=== PATIENT | male | born 1970 | race Caucasian/White ===

== ENCOUNTER 2016-10-10 11:05 | Inpatient (IN) ==
[2016-10-10] MEDS ORDERED: Ziprasidone injection 20 MG/ML VIAL IM ONE (11:18)
--- NOTE | 2016-10-10 11:19 | Emergency Department Note ---
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 Duration: constant Improves with: none Worsens with: none Context: other (Patient unable to give a history) Alleged intoxication: No Associated Psychiatric Symptoms: delusions Associated symptoms: Reports: denies other symptoms Traumatic symptoms: denies traumatic injury Treatments prior to arrival: senior care/police Self harm or harm to others: other (Patient denies any suicidal or homicidal ideation) - Related Data Home Medications Medication Instructions Recorded Confirmed No Known Home Drugs 10/10/16 10/10/16 Allergies Allergy/AdvReac Type Severity Reaction Status Date / Time No Known Allergies Allergy Verified 10/10/16 15:06 All systems ED: reviewed and negative except as stated. Constitutional: Denies: fever, chills Cardiovascular: Denies: chest pain Past Medical History - Past Medical History Source: patient, nursing notes reviewed Physical Exam - General Limitations: altered mental status (Patient appears to be in acute manic state) General appearance: alert - Head Head exam: atraumatic, normocephalic, normal inspection - Eye Eye exam: Present: normal appearance, PERRL, EOMI - Expanded Eye Exam Pupils: Left: reactive - ENT ENT exam: normal exam, normal oropharynx, mucous membranes moist - Expanded ENT Exam External ear exam: Present: normal external inspection Mouth exam: Present: normal external inspection Teeth exam: Present: normal inspection Throat exam: Present: normal inspection - Neck Neck exam: Present: normal inspection, full ROM, trachea midline - Chest Chest inspection: Present: normal inspection, symmetric chest wall rise - Respiratory Respiratory exam: Present: normal lung sounds bilaterally - Cardiovascular Cardiovascular exam: Present: regular rate, normal rhythm, normal heart sounds - Abdominal Exam Abdominal exam: Present: soft, Non-Tender. Absent: tenderness, distention, guarding, rebound, rigidity - Extremities Exam Extremities exam: Present: normal inspection, full ROM. Absent: tenderness, pedal edema - Expanded Upper Extremity Exam Shoulder exam: Present: normal inspection, full ROM Arm exam: Present: normal inspection, full ROM Elbow exam: Present: normal inspection, full ROM Forearm/Wrist exam: Present: normal inspection, full ROM Hand exam: Present: normal inspection, full ROM Vascular exam: Normal: capillary refill, radial pulse - Expanded Lower Extremity Exam Hip/Pelvis exam: Present: normal inspection, full ROM Upper leg exam: Present: normal inspection, full ROM Knee exam: Present: normal inspection, full ROM Lower leg exam: Present: normal inspection, full ROM Ankle exam: Present: normal inspection, full ROM Foot/toe exam: Present: normal inspection, full ROM Neurovascular/Tendon exam: Absent: motor deficit, sensory deficit, tendon deficit - Back Exam Back exam: Present: normal inspection, full ROM. Absent: tenderness - Neurological Exam Neurological exam: Present: alert - Expanded Neurological Exam Patient oriented to: Present: person Coma Scale Eye Opening: Spontaneous Coma Scale Motor Response: Obeys Commands Coma Scale Verbal Response: Oriented Coma Scale Total: 15 - Psychiatric Psychiatric exam: Present: manic - Skin Skin exam: Present: warm, dry, intact, normal color Course Vital Signs Temperature 99.0 F 10/10/16 11:08 Pulse Rate 121 10/10/16 11:08 Respiratory Rate 20 10/10/16 11:08 Blood Pressure 154/81 10/10/16 11:08 O2 Sat by Pulse Oximetry 97 10/10/16 11:08 Temperature 98.4 F 10/10/16 15:04 Pulse Rate 94 10/10/16 15:04 Respiratory Rate 16 10/10/16 15:04 Blood Pressure 126/83 10/10/16 15:04 O2 Sat by Pulse Oximetry 99 10/10/16 15:04 Oxygen Delivery Oxygen Delivery Room Air Psych - Lab Data Result diagrams: 10/10/16 11:34 10/10/16 11:34 Lab Results 10/10/16 10/10/16 10/10/16 Range/Units 11:31 11:31 11:34 WBC 8.7 (4.3-11.1) K/mcL RBC 5.17 (4.19-5.50) M/mcL Hgb 15.1 (12.9-16.9) g/dL Hct 44.9 (37.5-50.1) % MCV 86.8 (83.0-100.0) fL MCH 29.2 (28.0-33.3) pg MCHC 33.6 (31.6-35.5) g/dL RDW 13.9 (11.5-14.5) % Plt Count 272 (140-400) K/mcL MPV 9.5 (9.4-12.4) fL Immature Gran % 0.7 (0-4) % Seg Neutrophils % 70.4 % Lymphocytes % 19.1 % Monocytes % 9.0 % Eosinophils % 0.3 % Basophils % 0.5 % Neutrophils # 6.1 (1.6-8.9) K/mcL Lymphocytes # 1.7 (0.6-4.6) K/mcL Monocytes # 0.8 (0.0-1.3) K/mcL Eosinophils # 0.0 (0.0-0.6) K/mcL Basophils # 0.0 (0.0-0.2) K/mcL Sodium (136-145) mEq/L Potassium (3.5-4.5) mEq/L Chloride (98-109) mEq/L Carbon Dioxide (19-29) mEq/L BUN (8-26) mg/dL Creatinine (0.72-1.25) mg/dL Est GFR ( Amer) (> 60) Est GFR (Non-Af Amer) (> 60) BUN/Creatinine Ratio (6-26) Glucose (70-99) mg/dL Calculated Osmolality (280-300) Calcium (8.6-10.8) mg/dL Urine Color Dark Yellow (Yellow) Urine Clarity Clear (Clear) Urine pH 5.5 (5.0-8.0) pH Units Ur Specific [place] > 1.030 H (1.010-1.025) Urine Protein 30 H (Neg-Trace) mg/dL Urine Glucose (UA) Normal (Normal) mg/dL Urine Ketones Trace H (Negative) mg/dL Urine Blood Negative (Negative) Urine Nitrite Negative (Negative) Urine Bilirubin Small H (Negative) Urine Urobilinogen Normal (Normal) mg/dL Ur Leukocyte Esterase Negative (Negative) Urine Microscopic RBC 5-15 H (0-3) per hpf Urine Microscopic WBC 3-5 H (0-3) per hpf Ur Squamous Epith Cells Many H (None-Few) per lpf Urine Bacteria None Seen (None-Few) per hpf Hyaline Casts Few (None-Few) per lpf Salicylates (15-30) mg/dL Urine Opiates Screen Negative (Nulrce=207) ng/mL Acetaminophen (10-30) mcg/mL Ur Barbiturates Screen Negative (Zloumj=940) ng/mL Ur Phencyclidine Scrn Negative (Cutoff=25) ng/mL Ur Amphetamines Screen Negative (Vshzjb=1670) ng/mL U Benzodiazepines Scrn Negative (Nygpbf=714) ng/mL Urine Cocaine Screen Negative (Cutoff= 300) ng/mL U Marijuana (THC) Screen Positive H (Cutoff = 50) ng/mL Ethyl Alcohol (0-10) mg/dL 10/10/16 Range/Units 11:34 WBC (4.3-11.1) K/mcL RBC (4.19-5.50) M/mcL Hgb (12.9-16.9) g/dL Hct (37.5-50.1) % MCV (83.0-100.0) fL MCH (28.0-33.3) pg MCHC (31.6-35.5) g/dL RDW (11.5-14.5) % Plt Count (140-400) K/mcL MPV (9.4-12.4) fL Immature Gran % (0-4) % Seg Neutrophils % % Lymphocytes % % Monocytes % % Eosinophils % % Basophils % % Neutrophils # (1.6-8.9) K/mcL Lymphocytes # (0.6-4.6) K/mcL Monocytes # (0.0-1.3) K/mcL Eosinophils # (0.0-0.6) K/mcL Basophils # (0.0-0.2) K/mcL Sodium 140 (136-145) mEq/L Potassium 3.7 (3.5-4.5) mEq/L Chloride 103 (98-109) mEq/L Carbon Dioxide 23 (19-29) mEq/L BUN 13 (8-26) mg/dL Creatinine 0.99 (0.72-1.25) mg/dL Est GFR ( Amer) > 60 (> 60) Est GFR (Non-Af Amer) > 60 (> 60) BUN/Creatinine Ratio 13 (6-26) Glucose 110 H (70-99) mg/dL Calculated Osmolality 291 (280-300) Calcium 9.4 (8.6-10.8) mg/dL Urine Color (Yellow) Urine Clarity (Clear) Urine pH (5.0-8.0) pH Units Ur Specific [place] (1.010-1.025) Urine Protein (Neg-Trace) mg/dL Urine Glucose (UA) (Normal) mg/dL Urine Ketones (Negative) mg/dL Urine Blood (Negative) Urine Nitrite (Negative) Urine Bilirubin (Negative) Urine Urobilinogen (Normal) mg/dL Ur Leukocyte Esterase (Negative) Urine Microscopic RBC (0-3) per hpf Urine Microscopic WBC (0-3) per hpf Ur Squamous Epith Cells (None-Few) per lpf Urine Bacteria (None-Few) per hpf Hyaline Casts (None-Few) per lpf Salicylates < 5.0 L (15-30) mg/dL Urine Opiates Screen (Otmwrr=826) ng/mL Acetaminophen < 1.0 L (10-30) mcg/mL Ur Barbiturates Screen (Hbntzc=542) ng/mL Ur Phencyclidine Scrn (Cutoff=25) ng/mL Ur Amphetamines Screen (Sebeuh=2458) ng/mL U Benzodiazepines Scrn (Gramaq=751) ng/mL Urine Cocaine Screen (Cutoff= 300) ng/mL U Marijuana (THC) Screen (Cutoff = 50) ng/mL Ethyl Alcohol < 10 (0-10) mg/dL Psychiatric Medical Clearance - Medical Clearance Checklist Medical History: No Social History Section defined Current Vitals: Last Vital Signs Temp 98.4 F 10/10/16 15:04 Pulse 94 10/10/16 15:04 Resp 16 10/10/16 15:04 BP 126/83 10/10/16 15:04 Pulse Ox 99 10/10/16 15:04 Psychiatric Lab Panel: Drug Levels and Toxicity 10/10/16 10/10/16 11:31 11:34 Urine Opiates Screen Negative Acetaminophen < 1.0 L Ur Barbiturates Screen Negative Ur Phencyclidine Scrn Negative Ur Amphetamines Screen Negative U Benzodiazepines Scrn Negative Urine Cocaine Screen Negative U Marijuana (THC) Screen Positive H Ethyl Alcohol < 10 Abnormal Labs: Abnormal lab results Glucose 110 mg/dL (70-99) H 10/10/16 11:34 Ur Specific [place] > 1.030 (1.010-1.025) H 10/10/16 11:31 Urine Protein 30 mg/dL (Neg-Trace) H 10/10/16 11:31 Urine Ketones Trace mg/dL (Negative) H 10/10/16 11:31 Urine Bilirubin Small (Negative) H 10/10/16 11:31 Urine Microscopic RBC 5-15 per hpf (0-3) H 10/10/16 11:31 Urine Microscopic WBC 3-5 per hpf (0-3) H 10/10/16 11:31 Ur Squamous Epith Cells Many per lpf (None-Few) H 10/10/16 11:31 Salicylates < 5.0 mg/dL (15-30) L 10/10/16 11:34 Acetaminophen < 1.0 mcg/mL (10-30) L 10/10/16 11:34 U Marijuana (THC) Screen Positive ng/mL (Cutoff = 50) H 10/10/16 11:31 Statement of Medical Clearance: I have evaluated the patient, reviewed diagnostic information, and certify that the patient's medical condition is sufficiently stable that transfer to the psychiatric unit does not pose a significant risk of deterioration.
[2016-10-10] MEDS ORDERED: Water for inj. (sterile) 10 ML IV ONE (11:21)
[2016-10-10 11:42] LABS: Basophils % 0.5 %; Eosinophils % 0.3 %; Hematocrit 44.9 % (37.5-50.1); Hemoglobin 15.1 g/dL (12.9-16.9); Immature Granulocytes % 0.7 % (0-4); Lymphocytes # 1.7 K/mcL (0.6-4.6); Lymphocytes % 19.1 %; Mean Corpuscular HGB Conc 33.6 g/dL (31.6-35.5); Mean Corpuscular Hemoglobin 29.2 pg (28.0-33.3); Mean Corpuscular Volume 86.8 fL (83.0-100.0); Mean Platelet Volume 9.5 fL (9.4-12.4); Monocytes # 0.8 K/mcL (0.0-1.3); Neutrophils # 6.1 K/mcL (1.6-8.9); Platelet Count 272 K/mcL (140-400); Red Blood Count 5.17 M/mcL (4.19-5.50); Red Cell Distribution Width 13.9 % (11.5-14.5); Segmented Neutrophils % 70.4 %
[2016-10-10 11:44] LABS: Bilirubin,Urine Small (Negative); Blood,Urine Negative (Negative); Clarity,Urine Clear (Clear); Color,Urine Dark Yellow (Yellow); Glucose,Urine (UA) Normal (Normal); Ketones,Urine Trace mg/dL (Negative); Leukocyte Esterase,Urine Negative (Negative); Nitrite,Urine Negative (Negative); PH,Urine 5.5 pH Units (5.0-8.0); Protein,Urine 30 mg/dL (Neg-Trace); Specific Gravity,Urine > 1.030 (1.010-1.025); Urobilinogen,Urine Normal (Normal)
[2016-10-10 11:47] LABS: Bacteria,Urine None Seen per hpf (None-Few); Hyaline Casts,Urine Few per lpf (None-Few); Squamous Epithelial Cell,Urine Many per lpf (None-Few)
[2016-10-10 11:49] LABS: Amphetamine Screen,Urine Negative ng/mL (Cutoff=1000); Barbiturate Screen,Urine Negative ng/mL (Cutoff=200); Benzodiazepines Screen,Urine Negative ng/mL (Cutoff=200); Cannabinoid Screen,Urine Positive ng/mL (Cutoff = 50); Cocaine Screen,Urine Negative ng/mL (Cutoff= 300); Opiate Screen,Urine Negative ng/mL (Cutoff=300); Phencyclidine Screen,Urine Negative ng/mL (Cutoff=25)
[2016-10-10 11:55] LABS: BUN/Creatinine Ratio 13 (6-26); Blood Urea Nitrogen 13 mg/dL (8-26); Calcium 9.4 mg/dL (8.6-10.8); Carbon Dioxide 23 mEq/L (19-29); Chloride 103 mEq/L (98-109); Glucose 110 mg/dL (70-99); Osmolality,Calculated 291 (280-300); Potassium 3.7 mEq/L (3.5-4.5); Sodium 140 mEq/L (136-145); eGFR For African Americans > 60 (> 60); eGFR For Non-African Americans > 60 (> 60)
[2016-10-10 11:57] LABS: Acetaminophen < 1.0 mcg/mL (10-30); Ethanol < 10 mg/dL (0-10); Salicylate < 5.0 mg/dL (15-30)
[2016-10-10] MEDS ORDERED: *HR* LORazepam 1 MG TABLET PO PRN (17:28)
[2016-10-10] MEDS ORDERED: *HR* LORazepam 2 MG/ML VIAL IM PRN (17:28)
[2016-10-10] MEDS ORDERED: MOM Conc 10 ML UD.LIQ PO PRN (17:28)
[2016-10-10] MEDS ORDERED: Mag Hydrox/Al Hydrox/Simeth 30 ML UDC PO PRN (17:28)
[2016-10-10] MEDS ORDERED: Haloperidol Lactate 5 MG/ML VIAL IM PRN (17:28)
[2016-10-10] MEDS: traZODone 50 MG TABLET PO PRN (20:42)
[2016-10-10] MEDS: Acetaminophen 325 MG TABLET PO PRN (20:42)
[2016-10-10] MEDS: hydrOXYzine pamoate 25 MG CAPSULE PO PRN (20:42)
[2016-10-11] MEDS ORDERED: Ziprasidone 20 MG CAPSULE PO SCH (08:00)
[2016-10-11] MEDS: Nicotine 21 MG PATCH.TD24 TD SCH (08:25)
--- NOTE | 2016-10-11 13:21 | Psychiatry History & Physical ---
Date of Encounter: 10/11/16 Time of Encounter: 13:20 History of Present Illness Patient Stated Chief Complaint: "i dont know" Medicare Admission Attestation: For traditional Medicare patients the provided hospital inpatient services are reasonable and necessary and in the case of services not specified as inpatient -only under 42 CFR 419.22 (n), that they are appropriately provided as inpatient services in accordance 42 CFR 412.3. For Critical Access Hospital the patient may reasonably be expected to be discharged or transferred to a hospital within 96 hours after admission to the Critical Access Hospital. Admitted From: Home Plans for Post Hospital Care: Home History of Present Illness: Mr. Pinto is a 46 year old male with a past psychiatric history of anxiety and patient unsure of any other past diagnoses. Patient is a very poor historian and unable to recall the events leading up to admission or by he is at the hospital. Patient reports her first he was staying with want someone and then states that he was not staying with someone and that when he leaves here he is going to be homeless. Patient states that he had one hospitalization which was approximately 30 days and [facility] patient reports that he did very well there. Patient reports that he does not have a support system patient reports he has no children patient reports he is on disability and he should be getting his check on Monday. She has not denies depressive symptoms patient denies psychotic symptoms patient denied any paranoia patient denied hearing any voices or seeing anything that is not there patient denied manic or hypomanic symptoms. Patient did report that prior to coming to the hospital he has not been sleeping well. Patient reports his appetite is fair. Patient continues to state he is not sure why he is here nor does he remember any medications he has been on in the past. Patient was getting irritable with the questions being asked so evaluation was terminated. Discussed with patient starting Remeron at bedtime to help with his anxiety and sleep and patient was agreeable to this. Past Med Surg Social Fam HX - Past Medical History Medical history: other - Past Psychiatric History Psychiatric history: Reports: previous psychiatric hospitalization Past psychiatric history details: Inpatient hospitalizations: reports being hospitalized for about 30 days in [facility] [place]: denies past psych meds: pt doesn't know current psych meds: denies pt reports he is homeless reports he gets a check for disability reports he getting it on monday no children Family psychiatric history: No Family History of Suicide: None - Social History Smoking Status: Current every day smoker Smokeless Tobacco Status: No Alcohol use: occasionally Drug use: opiates, marijuana, prescription drug abuse, other Medications & Allergies No Known Home Drugs 10/10/16 [History] 3 Allergy/AdvReac Type Severity Reaction Status Date / Time No Known Allergies Allergy Verified 10/10/16 15:06 Review of Systems Psychiatric: Reports: abnormal sleep pattern, confusion, difficulty concentrating Mental Status Exam Patient orientation: Yes Person, Yes Time, Yes Place Level of alertness: Alert Patient appearance: Disheveled Behavior: nervous, anxious, guarded Psychomotor activity: Slowed Eye contact: Minimal Contact Mood description: Anxious, Irritable Affect description: flat Speech pattern: Delayed, Limited, Mumbled Speech volume: Soft/Quiet Thought process: Loose Associations, Disorganized Thought content: Yes Poverty of Content Attention span: Unable to Focus, Unable to Sustain Attention Memory description: Recent Impaired, Remote Impaired Patient reliability: Questionable Historian Intelligence estimate: Below Average Judgment: Poor Insight: Minimal Exam - HEENT Head exam IM: Present: normal inspection Eye exam IM: Present: EOMI, normal appearance Results - Vital Signs Vital signs: Temp Pulse Resp BP Pulse Ox 97.5 F L 84 16 122/88 99 10/11/16 09:00 10/11/16 09:00 10/11/16 09:00 10/11/16 09:00 10/10/16 15:04 - Labs Labs: Laboratory Last Values WBC 8.7 K/mcL (4.3-11.1) 10/10/16 11:34 RBC 5.17 M/mcL (4.19-5.50) 10/10/16 11:34 Hgb 15.1 g/dL (12.9-16.9) 10/10/16 11:34 Hct 44.9 % (37.5-50.1) 10/10/16 11:34 MCV 86.8 fL (83.0-100.0) 10/10/16 11:34 MCH 29.2 pg (28.0-33.3) 10/10/16 11:34 MCHC 33.6 g/dL (31.6-35.5) 10/10/16 11:34 RDW 13.9 % (11.5-14.5) 10/10/16 11:34 Plt Count 272 K/mcL (140-400) 10/10/16 11:34 MPV 9.5 fL (9.4-12.4) 10/10/16 11:34 Immature Gran % 0.7 % (0-4) 10/10/16 11:34 Seg Neutrophils % 70.4 % 10/10/16 11:34 Lymphocytes % 19.1 % 10/10/16 11:34 Monocytes % 9.0 % 10/10/16 11:34 Eosinophils % 0.3 % 10/10/16 11:34 Basophils % 0.5 % 10/10/16 11:34 Neutrophils # 6.1 K/mcL (1.6-8.9) 10/10/16 11:34 Lymphocytes # 1.7 K/mcL (0.6-4.6) 10/10/16 11:34 Monocytes # 0.8 K/mcL (0.0-1.3) 10/10/16 11:34 Eosinophils # 0.0 K/mcL (0.0-0.6) 10/10/16 11:34 Basophils # 0.0 K/mcL (0.0-0.2) 10/10/16 11:34 Sodium 140 mEq/L (136-145) 10/10/16 11:34 Potassium 3.7 mEq/L (3.5-4.5) 10/10/16 11:34 Chloride 103 mEq/L (98-109) 10/10/16 11:34 Carbon Dioxide 23 mEq/L (19-29) 10/10/16 11:34 BUN 13 mg/dL (8-26) 10/10/16 11:34 Creatinine 0.99 mg/dL (0.72-1.25) 10/10/16 11:34 Est GFR ( Amer) > 60 (> 60) 10/10/16 11:34 Est GFR (Non-Af Amer) > 60 (> 60) 10/10/16 11:34 BUN/Creatinine Ratio 13 (6-26) 10/10/16 11:34 Glucose 110 mg/dL (70-99) H 10/10/16 11:34 Calculated Osmolality 291 (280-300) 10/10/16 11:34 Calcium 9.4 mg/dL (8.6-10.8) 10/10/16 11:34 Urine Color Dark Yellow (Yellow) 10/10/16 11:31 Urine Clarity Clear (Clear) 10/10/16 11:31 Urine pH 5.5 pH Units (5.0-8.0) 10/10/16 11:31 Ur Specific [place] > 1.030 (1.010-1.025) H 10/10/16 11:31 Urine Protein 30 mg/dL (Neg-Trace) H 10/10/16 11:31 Urine Glucose (UA) Normal mg/dL (Normal) 10/10/16 11:31 Urine Ketones Trace mg/dL (Negative) H 10/10/16 11:31 Urine Blood Negative (Negative) 10/10/16 11:31 Urine Nitrite Negative (Negative) 10/10/16 11:31 Urine Bilirubin Small (Negative) H 10/10/16 11:31 Urine Urobilinogen Normal mg/dL (Normal) 10/10/16 11:31 Ur Leukocyte Esterase Negative (Negative) 10/10/16 11:31 Urine Microscopic RBC 5-15 per hpf (0-3) H 10/10/16 11:31 Urine Microscopic WBC 3-5 per hpf (0-3) H 10/10/16 11:31 Ur Squamous Epith Cells Many per lpf (None-Few) H 10/10/16 11:31 Urine Bacteria None Seen per hpf (None-Few) 10/10/16 11:31 Hyaline Casts Few per lpf (None-Few) 10/10/16 11:31 Salicylates < 5.0 mg/dL (15-30) L 10/10/16 11:34 Urine Opiates Screen Negative ng/mL (Kedehk=619) 10/10/16 11:31 Acetaminophen < 1.0 mcg/mL (10-30) L 10/10/16 11:34 Ur Barbiturates Screen Negative ng/mL (Fgnfxn=840) 10/10/16 11:31 Ur Phencyclidine Scrn Negative ng/mL (Cutoff=25) 10/10/16 11:31 Ur Amphetamines Screen Negative ng/mL (Muucpl=4250) 10/10/16 11:31 U Benzodiazepines Scrn Negative ng/mL (Qhploi=108) 10/10/16 11:31 Urine Cocaine Screen Negative ng/mL (Cutoff= 300) 10/10/16 11:31 U Marijuana (THC) Screen Positive ng/mL (Cutoff = 50) H 10/10/16 11:31 Ethyl Alcohol < 10 mg/dL (0-10) 10/10/16 11:34 Assessment and Plan (1) Acute psychosis Current visit: Yes Status: Acute Plan: Admit inpatient for safety and stabilization, Close observation, Suicide Precautions per unit protocol, Encourage participation in unit milieu, Group Therapy, Monitor sleep, Monitor appetite Additional Plan: - 10/11: start remeron 7.5 mg qhs Risks, benefits, side effects, alternatives discussed w/pt: Yes Patient agreeable to treatment: Yes Plans for Post Hospital Care: Home Estimated Length of Stay (Days): 7
[2016-10-11] MEDS: hydrOXYzine pamoate 25 MG CAPSULE PO PRN ×2 (14:13→23:09)
[2016-10-11] MEDS: traZODone 50 MG TABLET PO PRN (23:09)
[2016-10-12] MEDS: Nicotine 21 MG PATCH.TD24 TD SCH (08:09)
--- NOTE | 2016-10-12 14:27 | Psychiatry Progress Note ---
Date of Encounter: 10/12/16 Time of Encounter: 14:26 Subjective Interval history: Patient seen and evaluated this morning. Patient was calm and cooperative and did not appear to be any acute distress during the evaluation. Patient reports that he is feeling "better". Patient reports that he is working on the place he will be going after he leaves here. Patient reports no current issues with his medication. Patient reports that he is sleeping "okay" per staff patient has been out in the milieu and has been eating. Review of Systems Psychiatric: Reports: abnormal sleep pattern, confusion, difficulty concentrating Results - Vital Signs Vital Signs: Temp Pulse Resp BP Pulse Ox 98 F 83 16 114/77 99 10/12/16 09:25 10/12/16 09:25 10/12/16 09:25 10/12/16 09:25 10/10/16 15:04 Assessment and Plan (1) Acute psychosis Current visit: Yes Status: Acute Risks, benefits, side effects, alternatives discussed w/pt: Yes Patient agreeable to treatment: Yes Consult Discharge Plan - Plan Referrals: NONE,PCP [Primary Care Provider] -
[2016-10-12] MEDS: traZODone 50 MG TABLET PO PRN (23:18)
[2016-10-13] MEDS: Acetaminophen 325 MG TABLET PO PRN (03:48)
[2016-10-13] MEDS: hydrOXYzine pamoate 25 MG CAPSULE PO PRN (03:49)
[2016-10-13] MEDS: Nicotine 21 MG PATCH.TD24 TD SCH (08:29)
--- NOTE | 2016-10-13 14:06 | Psychiatry Progress Note ---
Date of Encounter: 10/13/16 Time of Encounter: 14:05 Subjective Interval history: She is seen and evaluated this morning patient was calm and cooperative with the evaluation was not in any acute distress during evaluation. Patient reports that he is doing very well and reports that he has a discharge plan for tomorrow which is very happy about. Patient reports that the only thing that he would like help with that sometimes he gets very angry easily and we discussed starting medication for this which involved Depakote patient reports he is agreeable to this as long as there are no sexual side effects. Patient denies suicidal or homicidal ideations patient has not had any overt psychosis patient has been eating and sleeping well per staff know issues regarding patient safety. Review of Systems Psychiatric: Reports: abnormal sleep pattern, confusion, difficulty concentrating Objective: Exam Patient orientation: Yes Person, Yes Time, Yes Place, Yes Circumstance Level of alertness: Alert Patient appearance: Appropriate Behavior: calm Psychomotor activity: Normal Eye contact: Maintains Eye Contact Mood description: Euthymic/stable Affect description: congruent with mood Speech pattern: Normal rate, Normal rhythm, Normal tone Speech volume: Normal Thought process: Intact Thought content: Yes Intact Judgment: Fair Insight: Partial Results - Vital Signs Vital Signs: Temp Pulse Resp BP Pulse Ox 97.6 F 74 16 118/74 99 10/13/16 09:00 10/13/16 09:00 10/13/16 09:00 10/13/16 09:00 10/10/16 15:04 Assessment and Plan (1) Acute psychosis Current visit: Yes Status: Acute Risks, benefits, side effects, alternatives discussed w/pt: Yes Patient agreeable to treatment: Yes Consult Discharge Plan - Plan Referrals: NONE,PCP [Primary Care Provider] -
[2016-10-13] MEDS: traZODone 50 MG TABLET PO PRN (20:53)
[2016-10-13] MEDS ORDERED: Divalproex (24 HR) 500 MG TABLET PO SCH (21:00)
--- NOTE | 2016-10-14 08:43 | Discharge Summary ---
Date of Encounter: 10/14/16 Time of Encounter: 08:41 Diagnosis - Discharge Diagnosis (1) Acute psychosis Status: Acute Medications - Discharge Medications Prescriptions: Divalproex (24 HR) [Depakote ER (24 HR)] 500 mg PO HS #30 hydrOXYzine pamoate [HydrOXYzine Pamoate] 25 mg PO TID PRN #90 PRN Reason: Anxiety Nicotine Patch [Nicoderm] 21 mg TD DAILY #30 Paliperidone [Invega] 6 mg PO DAILY #30 traZODone [TraZODone] 50 mg PO HS PRN #30 tab PRN Reason: Insomnia Divalproex (24 HR) [Depakote ER (24 HR)] 500 mg PO HS #30 10/14/16 [Rx] Nicotine Patch [Nicoderm] 21 mg TD DAILY #30 10/14/16 [Rx] Paliperidone [Invega] 6 mg PO DAILY #30 10/14/16 [Rx] hydrOXYzine pamoate [HydrOXYzine Pamoate] 25 mg PO TID PRN #90 10/14/16 [Rx] traZODone [TraZODone] 50 mg PO HS PRN #30 tab 10/14/16 [Rx] 3 Allergy/AdvReac Type Severity Reaction Status Date / Time No Known Allergies Allergy Verified 10/10/16 15:06 Provider Date of admission: 10/10/16 16:43 Primary care physician: PCP NONE Discharging clinician: Jamir Ritchie Assessment and Plan - Patient/Caregiver Discharge Instructions Activity: resume usual activities as tolerated Diet: regular diet - Follow up Plan Follow up with: NONE,PCP [Primary Care Provider] - Overall status at discharge: Stable Disposition: Home, Self-Care Hospital Course Hospital course: Mr. Pinto is a 46 year old male with bipolar disorder admitted [facility] inpatient psychiatric unit for safety and stabilization. Patient's home medications were continued and reviewed. Throughout the hospital course patient was started on invega,depakote and trazodone pt to assist with mood symptom stabilization. Patient did not exhibit any side effects to medication he was med compliant while he was on the unit patient participated in groups and was socializing with peers. Patient's sleep and appetite was fair. Patient denied any suicide or homicide ideations. Patient denied any thoughts of self-harm. Patient reports being interested in outpatient medication management and counseling. Patient was discussed for discharge due to patient not being a threat to himself or anyone else. 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 Time spent discussing smoking cessation with patient: 3 to 10 minutes Does patient wish to continue nicotine replacement upon disc: Yes (patch) - Time Spent with Patient Total time spent providing and/or coordinating discharge services: Less than 30 minutes Quality - Multiple Antipsychotics Patient discharged on 2 or more antipsychotic medications: No Procedures - Procedures Procedures: Medication Management, Supportive Therapy, Group Therapy, Psychoeducational Therapy Mental Status Exam - Mental Status Exam Patient orientation: Yes Person, Yes Time, Yes Place, Yes Circumstance Level of alertness: Alert Patient appearance: Appropriate Behavior: calm, cooperative Psychomotor activity: Normal Eye contact: Maintains Eye Contact Mood description: Euthymic/stable Affect description: congruent with mood Speech pattern: Normal rate, Normal rhythm, Normal tone Speech Volume: Normal Thought process: Intact Thought Content: Yes Intact Judgment: Fair Insight: Partial
[2016-10-14 09:01] VITALS: BP 120/79
[2016-10-14] MEDS: Nicotine 21 MG PATCH.TD24 TD SCH (09:02)
== END 2016-10-14 13:10 | disposition home or self-care (01) | DRG 885 ==
LOC: EMEROO 11:05 → 1ANU 16:43
PROVIDERS: ADMIT Psychiatry & Neurology Psychiatry; ATTEND Psychiatry & Neurology Psychiatry